=== PATIENT | male | born 1955 | race Caucasian/White ===

== ENCOUNTER 2017-03-04 15:19 | Emergency (ER) | payer OTHER, BC ==
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
== END 2017-03-04 16:40 | disposition home or self-care (01) ==
LOC: DL.ED 15:19
DX: S06.0X0A Concussion without loss of consciousness, initial encounter (principal); S00.03XA Contusion of scalp, initial encounter; S00.91XA Abrasion of unspecified part of head, initial encounter; Y04.0XXA Assault by unarmed brawl or fight, initial encounter; Y99.0 Civilian activity done for income or pay
CPT/HCPCS: 99283

== ENCOUNTER 2024-01-02 15:43 | Inpatient (IN) | payer MEDICARE, OTHER ==
[2024-01-02] MEDS ORDERED: Ondansetron 4 MG/2 ML SDV IVPUSH PRN (16:04)
[2024-01-02] MEDS ORDERED: Naloxone 2 MG/2 ML Syringe IVPUSH PRN (16:04)
[2024-01-02] MEDS ORDERED: Metoclopramide 10 MG/2 ML SDV IV PRN (16:04)
[2024-01-02] MEDS ORDERED: Magnesium Hydroxide 400 MG/5 ML Susp 30 ML Cup PO PRN (16:04)
[2024-01-02] MEDS ORDERED: Albuterol/Ipratropium 3.0-0.5 MG/3 ML Neb Soln NEB PRN (16:04)
[2024-01-02] MEDS ORDERED: Acetaminophen/oxyCODONE 325-5 MG Tab PO PRN (16:04)
[2024-01-02] MEDS ORDERED: Morphine 2 MG/ML SYRINGE IVPUSH PRN (16:04)
[2024-01-02] MEDS ORDERED: Zolpidem 5 MG Tab PO PRN (16:04)
[2024-01-02] MEDS ORDERED: Polyethylene Glycol 3350 Powder 17 GM Packet PO PRN (16:04)
[2024-01-02] MEDS ORDERED: Cyclobenzaprine 10 MG Tab PO PRN (16:13)
[2024-01-02] MEDS ORDERED: traMADol 50 MG Tab PO PRN (17:15)
[2024-01-02] MEDS: Heparin Sodium 5,000 Units/ML Vial IVPUSH ONE (17:56)
[2024-01-02] MEDS: HYDROmorphone 0.5 MG/0.5 ML Syringe IVPUSH PRN (17:59)
[2024-01-02] MEDS: Benzonatate 100 MG Cap PO PRN (17:59)
[2024-01-02] MEDS: Gabapentin 300 MG Cap PO ONE (17:59)
[2024-01-02] MEDS: Sodium Chloride 0.9% 1,000 ML IV SCH (18:02)
[2024-01-02] MEDS: Heparin Sodium/0.45% NaCl 25,000 UNITS/500 ML BAG IV SCH (18:02)
[2024-01-02 18:05] LABS: BASOPHILS PERCENT AUTO 0.4 % (0.0-1.0); EOSINOPHILS PERCENT AUTO 1.2 % (1.0-3.0); HEMOGLOBIN 14.6 g/dL (14.0-18.0); LYMPHOCYTES PERCENT AUTO 18.5 % (20.5-50.1); MEAN CORPUSCULAR HEMOGLOBIN 32.4 pg (27.0-34.0); MEAN CORPUSCULAR VOLUME 95.6 fL (80-100); MONOCYTES PERCENT AUTO 13.4 % (2-8); NEUTROPHILS PERCENT AUTO 66.5 % (42.2-75.2); PLATELET COUNT,PLT 181 10^3/uL (150-450)
[2024-01-02 18:30] LABS: PROTHROMBIN TIME 10.3 SEC (9.0-12.0); PTT,PARTIAL THROMBOPLSTIN TIME 25.6 SEC (22.0-34.0)
[2024-01-02 18:34] LABS: A/G RATIO 0.9; ALBUMIN 3.6 g/dL (3.4-5.0); BILIRUBIN TOTAL 0.6 mg/dL (0.2-1.0); BUN/CREATININE RATIO 11.5 (No establ ref range); C-REACTIVE PROTEIN 11.46 ng/dL (<=0.50); CALCIUM 9.3 mg/dL (8.5-10.1); CREATININE 1.48 mg/dL (0.70-1.30); EST CRCL DRUG DOSING (CG) 45.57 mL/min; MAGNESIUM 2.1 mg/dL (1.8-2.4); PROTEIN TOTAL,TP 7.5 g/dL (6.4-8.2)
[2024-01-02] MEDS: Morphine 2 MG/ML SYRINGE IVPUSH ONE ×2 (19:25→22:15)
[2024-01-02] MEDS: Gabapentin 300 MG Cap PO SCH (19:55)
[2024-01-02] MEDS: Acetaminophen 325 MG Tab PO PRN (19:55)
[2024-01-02] MEDS ORDERED: Glucagon,Human Recombinant 1 MG Vial IM PRN (20:05)
[2024-01-02] MEDS ORDERED: 50% Dextrose in Water 50 ML Syringe IVPUSH PRN (20:05)
[2024-01-02] MEDS: Saccharomyces Boulardii (Probiotic) 250 MG Cap PO SCH (21:00)
[2024-01-02] MEDS: Dexamethasone 4 MG/ML SDV IVPUSH SCH (21:01)
[2024-01-02] MEDS: Pantoprazole 40 MG Vial IVPUSH ONE (21:03)
[2024-01-02] MEDS: cefTRIAXone 2 GM Vial IVPUSH ONE (21:10)
[2024-01-02] MEDS: REMDESIVIR 200 MG in Sodium Chloride 0.9% 250 ML IV ONE (21:39)
[2024-01-02] MEDS: Azithromycin 500 MG in Sodium Chloride 0.9% 250 ML IV ONE (21:41)
[2024-01-03] MEDS: Enoxaparin 60 MG/0.6 ML Syringe SUBCUT ONE (02:00)
[2024-01-03] MEDS: Pantoprazole 40 MG Tab.CR PO SCH (05:13)
[2024-01-03 06:41] LABS: BASOPHILS PERCENT AUTO 0.1 % (0.0-1.0); HEMATOCRIT 37.5 % (40.0-54.0); HEMOGLOBIN 12.4 g/dL (14.0-18.0); MEAN CORPUSCULAR HEMOGLOBIN 32.2 pg (27.0-34.0); MEAN CORPUSCULAR HGB CONC 33.1 g/dL (33.0-35.0); MEAN CORPUSCULAR VOLUME 97.4 fL (80-100); MONOCYTES PERCENT AUTO 5.4 % (2-8); NEUTROPHILS PERCENT AUTO 85.5 % (42.2-75.2); PLATELET COUNT,PLT 188 10^3/uL (150-450); RED BLOOD CELL COUNT 3.85 10^6/uL (4.6-6.2); WHITE BLOOD CELL COUNT,WBC 11.8 10^3/uL (5.0-10.0)
[2024-01-03 06:57] LABS: PROTHROMBIN TIME 10.8 SEC (9.0-12.0); PTT,PARTIAL THROMBOPLSTIN TIME 29.6 SEC (22.0-34.0)
[2024-01-03 07:30] LABS: ALBUMIN 2.9 g/dL (3.4-5.0); ANION GAP 12.6 mEq/L (7-13); BILIRUBIN DIRECT 0.1 mg/dL (0.0-0.2); BILIRUBIN TOTAL 0.5 mg/dL (0.2-1.0); BUN/CREATININE RATIO 12.6 (No establ ref range); C-REACTIVE PROTEIN 15.61 ng/dL (<=0.50); CALCIUM 8.5 mg/dL (8.5-10.1); CREATININE 1.35 mg/dL (0.70-1.30); EST CRCL DRUG DOSING (CG) 49.96 mL/min; MAGNESIUM 2.3 mg/dL (1.8-2.4); POTASSIUM,K 4.6 mmol/L (3.5-5.1); PROTEIN TOTAL,TP 6.7 g/dL (6.4-8.2)
[2024-01-03 07:32] LABS: A/G RATIO 0.76
[2024-01-03] MEDS: Azithromycin 500 MG in Sodium Chloride 0.9% 250 ML IV SCH (09:56)
[2024-01-03] MEDS: cefTRIAXone 1 GM Vial IVPUSH SCH (09:57)
[2024-01-03] MEDS: Insulin Lispro 100 Units/ML 3 ML Vial SUBCUT SCH (09:58)
[2024-01-03] MEDS: REMDESIVIR 100 MG in Sodium Chloride 0.9% 100 ML IV SCH (17:40)
[2024-01-03] MEDS: Sennosides/Docusate Sodium 50-8.6 MG Tab PO PRN (20:33)
[2024-01-03] MEDS: Temazepam 15 MG Cap PO PRN (21:19)
[2024-01-04 06:18] LABS: BASOPHILS PERCENT AUTO 0.1 % (0.0-1.0); HEMOGLOBIN 11.5 g/dL (14.0-18.0); MEAN CORPUSCULAR HEMOGLOBIN 32.4 pg (27.0-34.0); MEAN CORPUSCULAR HGB CONC 33.8 g/dL (33.0-35.0); MEAN CORPUSCULAR VOLUME 95.8 fL (80-100); MONOCYTES PERCENT AUTO 4.8 % (2-8); NEUTROPHILS PERCENT AUTO 87.1 % (42.2-75.2); PLATELET COUNT,PLT 192 10^3/uL (150-450); RED BLOOD CELL COUNT 3.55 10^6/uL (4.6-6.2); WHITE BLOOD CELL COUNT,WBC 16.2 10^3/uL (5.0-10.0)
[2024-01-04 06:39] LABS: ALBUMIN 2.6 g/dL (3.4-5.0); ANION GAP 14.1 mEq/L (7-13); BILIRUBIN DIRECT 0.1 mg/dL (0.0-0.2); BILIRUBIN TOTAL 0.3 mg/dL (0.2-1.0); BUN/CREATININE RATIO 16.9 (No establ ref range); C-REACTIVE PROTEIN 14.13 ng/dL (<=0.50); CALCIUM 8.4 mg/dL (8.5-10.1); CREATININE 1.18 mg/dL (0.70-1.30); EST CRCL DRUG DOSING (CG) 57.16 mL/min; MAGNESIUM 2.2 mg/dL (1.8-2.4); POTASSIUM,K 4.1 mmol/L (3.5-5.1); PROTEIN TOTAL,TP 6.2 g/dL (6.4-8.2)
[2024-01-04 06:42] LABS: A/G RATIO 0.72
[2024-01-04] MEDS: Bisacodyl 5 MG Tab PO PRN (08:38)
[2024-01-04] MEDS ORDERED: Melatonin 3 MG Tab PO PRN (09:48)
[2024-01-04] MEDS ORDERED: Ketorolac 30 MG/ML SDV IVPUSH PRN (10:16)
[2024-01-04] MEDS ORDERED: Gabapentin 100 MG Cap PO SCH (21:00)
[2024-01-04] MEDS: Apixaban 5 MG Tab PO SCH (21:07)
[2024-01-05 06:34] LABS: BASOPHILS PERCENT AUTO 0.1 % (0.0-1.0); HEMATOCRIT 35.7 % (40.0-54.0); HEMOGLOBIN 12.2 g/dL (14.0-18.0); MEAN CORPUSCULAR HEMOGLOBIN 32.7 pg (27.0-34.0); MEAN CORPUSCULAR HGB CONC 34.2 g/dL (33.0-35.0); MEAN CORPUSCULAR VOLUME 95.7 fL (80-100); NEUTROPHILS PERCENT AUTO 89.9 % (42.2-75.2); PLATELET COUNT,PLT 223 10^3/uL (150-450); RED BLOOD CELL COUNT 3.73 10^6/uL (4.6-6.2); WHITE BLOOD CELL COUNT,WBC 15.1 10^3/uL (5.0-10.0)
[2024-01-05 06:58] LABS: ALBUMIN 2.7 g/dL (3.4-5.0); ANION GAP 15.1 mEq/L (7-13); BILIRUBIN DIRECT 0.1 mg/dL (0.0-0.2); BILIRUBIN TOTAL 0.3 mg/dL (0.2-1.0); BUN/CREATININE RATIO 19.1 (No establ ref range); C-REACTIVE PROTEIN 8.12 ng/dL (<=0.50); CALCIUM 8.5 mg/dL (8.5-10.1); CREATININE 1.15 mg/dL (0.70-1.30); EST CRCL DRUG DOSING (CG) 58.65 mL/min; MAGNESIUM 2.4 mg/dL (1.8-2.4); POTASSIUM,K 4.1 mmol/L (3.5-5.1); PROTEIN TOTAL,TP 6.3 g/dL (6.4-8.2)
[2024-01-05 07:10] LABS: A/G RATIO 0.75
[2024-01-05] MEDS ORDERED: Glucagon,Human Recombinant 1 MG Vial IM PRN (11:54)
[2024-01-05] MEDS: Insulin Lispro 100 Units/ML 3 ML Vial SUBCUT SCH (17:28)
[2024-01-06 06:08] LABS: BASOPHILS PERCENT AUTO 0.1 % (0.0-1.0); HEMATOCRIT 35.1 % (40.0-54.0); HEMOGLOBIN 11.9 g/dL (14.0-18.0); LYMPHOCYTES PERCENT AUTO 10.5 % (20.5-50.1); MEAN CORPUSCULAR HEMOGLOBIN 32.4 pg (27.0-34.0); MEAN CORPUSCULAR HGB CONC 33.9 g/dL (33.0-35.0); MEAN CORPUSCULAR VOLUME 95.6 fL (80-100); MONOCYTES PERCENT AUTO 4.4 % (2-8); PLATELET COUNT,PLT 244 10^3/uL (150-450); RED BLOOD CELL COUNT 3.67 10^6/uL (4.6-6.2)
[2024-01-06 06:37] LABS: ALBUMIN 2.6 g/dL (3.4-5.0); BILIRUBIN TOTAL 0.3 mg/dL (0.2-1.0); BUN/CREATININE RATIO 17.7 (No establ ref range); CALCIUM 8.2 mg/dL (8.5-10.1); CREATININE 1.13 mg/dL (0.70-1.30); EST CRCL DRUG DOSING (CG) 59.69 mL/min; MAGNESIUM 2.3 mg/dL (1.8-2.4)
[2024-01-06 07:01] LABS: A/G RATIO 0.76
[2024-01-06] MEDS ORDERED: Sodium Chloride 0.9% 100 ML IV PRN (08:18)
[2024-01-06] MEDS: Azithromycin 500 MG in Sodium Chloride 0.9% 250 ML IV SCH (09:54)
[2024-01-06] MEDS: cefTRIAXone 1 GM Vial IVPUSH SCH (09:55)
[2024-01-06] MEDS: REMDESIVIR 100 MG in Sodium Chloride 0.9% 100 ML IV SCH (09:55)
== END 2024-01-06 11:45 | disposition home or self-care (01) | DRG 299 ==
LOC: UNDOADMIN 15:43 → DL.MS 15:43
PROVIDERS: ADMIT Internal Medicine; ATTEND Internal Medicine
PROC: XW033E5 Introduction of Remdesivir Anti-infective into Peripheral Vein, Percutaneous Approach, New Technology Group 5 (ICD-10-PCS; principal; 2024-01-02)
DX: I82.411 Acute embolism and thrombosis of right femoral vein (principal); I26.99 Other pulmonary embolism without acute cor pulmonale; U07.1 COVID-19; J98.11 Atelectasis; N17.9 Acute kidney failure, unspecified; I82.431 Acute embolism and thrombosis of right popliteal vein; G47.33 Obstructive sleep apnea (adult) (pediatric); I10 Essential (primary) hypertension; E66.9 Obesity, unspecified; Z68.33 Body mass index [BMI] 33.0-33.9, adult; G89.29 Other chronic pain; M25.571 Pain in right ankle and joints of right foot; R09.02 Hypoxemia; R74.01 Elevation of levels of liver transaminase levels; R79.89 Other specified abnormal findings of blood chemistry; Z79.899 Other long term (current) drug therapy; Z99.81 Dependence on supplemental oxygen
CPT/HCPCS: 36415; 71275; 80053; 82248; 82947; 83605; 83735; 84484; 85025; 85610; 85730; 86140; 87804; 93306; 93970; 99223; 99232; 99233; 99238; A9270-GY; J0248; J0456; J0696; J1100; J1170; J1644; J1650; J1815-GY; J2270; J2470; J3490; J7030; J7050; U0002

== ENCOUNTER 2024-04-01 08:48 | Emergency (ER) | payer MEDICARE, OTHER ==
[2024-04-01 09:29] LABS: BASOPHILS PERCENT AUTO 0.8 % (0.0-1.0); EOSINOPHILS PERCENT AUTO 2.3 % (1.0-3.0); HEMATOCRIT 43.5 % (40.0-54.0); HEMOGLOBIN 14.9 g/dL (14.0-18.0); LYMPHOCYTES PERCENT AUTO 43.5 % (20.5-50.1); MEAN CORPUSCULAR HEMOGLOBIN 31.5 pg (27.0-34.0); MEAN CORPUSCULAR HGB CONC 34.3 g/dL (33.0-35.0); MONOCYTES PERCENT AUTO 12.3 % (2-8); NEUTROPHILS PERCENT AUTO 41.1 % (42.2-75.2); PLATELET COUNT,PLT 188 10^3/uL (150-450); RED BLOOD CELL COUNT 4.73 10^6/uL (4.6-6.2); WHITE BLOOD CELL COUNT,WBC 5.3 10^3/uL (5.0-10.0)
[2024-04-01] MEDS: Aspirin 81 MG Tab.Chew PO ONE (09:30)
[2024-04-01] MEDS: Acetaminophen 500 MG Tab PO ONE (09:30)
[2024-04-01 09:52] LABS: A/G RATIO 1.2; ALBUMIN 3.6 g/dL (3.4-5.0); ANION GAP 11.8 mEq/L (7-13); BILIRUBIN TOTAL 0.8 mg/dL (0.2-1.0); BUN/CREATININE RATIO 11.1 (No establ ref range); CALCIUM 8.7 mg/dL (8.5-10.1); CREATININE 1.26 mg/dL (0.70-1.30); EST CRCL DRUG DOSING (CG) 53.53 mL/min; MAGNESIUM 2.1 mg/dL (1.8-2.4); POTASSIUM,K 3.8 mmol/L (3.5-5.1); PROTEIN TOTAL,TP 6.7 g/dL (6.4-8.2)
== END 2024-04-01 10:33 | disposition home or self-care (01) ==
LOC: DL.ED 08:48
DX: M79.601 Pain in right arm (principal); E66.9 Obesity, unspecified; Z96.659 Presence of unspecified artificial knee joint; Z86.718 Personal history of other venous thrombosis and embolism; Z79.01 Long term (current) use of anticoagulants; Z79.899 Other long term (current) drug therapy; Z68.32 Body mass index [BMI] 32.0-32.9, adult
CPT/HCPCS: 36415; 71045; 80053; 83735; 84484; 85025; 93005; 93010; 99284; A9270-GY